=== PATIENT | female | born 2000 | race Caucasian/White ===

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

== ENCOUNTER 2022-11-12 14:06 | Emergency (ER) | payer OTHER ==
[2022-11-12 14:14] VITALS: BP 115/74; PULSE 105; RESP 18; TEMP 98.2; BMI 19.3
== END 2022-11-12 15:11 | disposition home or self-care (01) ==
LOC: JER 14:06 → JERFT 14:06
DX: H92.01 Otalgia, right ear (principal); H66.011 Acute suppurative otitis media with spontaneous rupture of ear drum, right ear; H60.391 Other infective otitis externa, right ear
CPT/HCPCS: 99283-25

== ENCOUNTER 2023-10-16 12:46 | Emergency (ER) | payer SELFPAY ==
[2023-10-16 12:58] VITALS: BP 125/84; PULSE 98; RESP 18; TEMP 97.7; BMI 19.3
[2023-10-16 13:59] LABS: BASO % 0.5 % (0-2.0); EOS % 1.3 % (0-4.5); HEMATOCRIT 37.4 % (32.4-45.2); HEMOGLOBIN 13.2 GM/dL (10.7-15.3); MCH 32.8 pg (25.7-33.7); MCHC 35.3 g/dl (32.0-36.0); MEAN PLT VOLUME 9.4 fl (7.5-11.1); MONO % 7.6 % (3.8-10.2); NEUT % 72.6 % (42.8-82.8); PLATELET COUNT 229 10^3/uL (134-434); RBC 4.02 M/mm3 (3.60-5.2); RDW 13.5 % (11.6-15.6); WHITE BLOOD COUNT 8.9 K/mm3 (4.0-10.0)
[2023-10-16 14:07] LABS: POTASSIUM 3.7 mmol/L (3.5-5.1)
[2023-10-16 14:09] LABS: CALCIUM 9.7 mg/dL (8.5-10.1)
[2023-10-16 14:10] LABS: ALBUMIN 3.9 g/dl (3.4-5.0); BLOOD UREA NITROGEN 9.2 mg/dL (7-18)
[2023-10-16 14:13] LABS: CREATININE 0.7 mg/dL (0.55-1.3)
[2023-10-16 14:14] LABS: BILIRUBIN,TOTAL 0.9 mg/dL (0.2-1); TOT PROT 7.4 g/dl (6.4-8.2)
[2023-10-16 15:30] LABS: HIV INTERPRETATION NEGATIVE (NEGATIVE)
[2023-10-16 15:53] LABS: HCG,QUALITATIVE URINE Positive
[2023-10-16 15:56] LABS: EPI CELLS 17 /uL (0-25.1); HYALINE CASTS 0 /uL (0-3.1); PH,URINE 5.5 (5.0-8.0); URINE APPEARANCE CLOUDY; URINE BACTERIA >9,000 /uL (0-1359); URINE BILIRUBIN NEGATIVE (NEGATIVE); URINE COLOR YELLOW; URINE GLUCOSE (UA) NEGATIVE (NEGATIVE); URINE KETONE TRACE (NEGATIVE); URINE LEUK ESTERASE NEGATIVE (NEGATIVE); URINE NITRITE POSITIVE (NEGATIVE); URINE PROTEIN NEGATIVE (NEGATIVE); URINE RBC 475 /uL (0-23.9); URINE WBC 17 /uL (0-25.8)
== END 2023-10-16 16:30 | disposition home or self-care (01) ==
LOC: JER 12:46
DX: O03.4 Incomplete spontaneous abortion without complication (principal)
CPT/HCPCS: 36415; 76817-TC; 80053; 81003; 84702; 84703; 85025; 86850; 86900; 86901; 87086; 87186; 87389; 99284-25